=== PATIENT | male | born 1975 | race Caucasian/White ===

== ENCOUNTER → 2017-04-07 | Outpatient (CLI) | payer BC ==
[~2017-04-07] MED LIST: GADAVIST IV PRN
[2017-04-07 19:29] LABS: BASO % 0.1 %; BASO ABS # 0.02 K/uL (0-0.2); COMPLETE YES; EOS % 0.1 %; HEMATOCRIT 45.7 % (42-52); IG% 1.6 %; LYMPH % 11.1 %; LYMPH ABS # 2.06 K/uL (1.2-3.4); MEAN CELL VOLUME 90.9 fL (80-100); MEAN CORPUSCULAR HEMOGLOBIN 30.2 pg (25-34); MEAN CORPUSCULAR HGB CONC 33.3 g/dl (32-36); MEAN PLATELET VOLUME 9.7 fL (7.4-10.4); MONO % 3.4 %; NEUT % 83.7 %; PLATELET COUNT 343 K/uL (130-400); RED BLOOD COUNT 5.03 M/uL (4.7-6.1); WHITE BLOOD COUNT 18.52 K/uL (4.8-10.8)
--- NOTE | 2017-04-07 20:28 | DIAGNOSTIC IMAGING REPORT ---
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 COMPARISON STUDY: None. FINDINGS: There are no areas of restricted diffusion to suggest acute infarction. The midline structures are intact. The paranasal sinuses are clear. The mastoid air cells are clear. The ventricles and sulci are within normal limits for age. There is no mass, hematoma, midline shift. The major vascular flow-voids at the skull base are well maintained. Postcontrast sequences show no areas of abnormal enhancement. No abnormal enhancement or masses within the bilateral internal auditory canals. No evidence for inner ear dysplasia. The 7th and 8th cranial nerves are normal and course and caliber. IMPRESSION: No acute intracranial abnormality. Normal bilateral internal auditory canals. Electronically signed by: Lorenzo Ibarra M.D. 04/07/2017 8:27 PM Dictated Date/Time: 04/07/2017 8:21 PM
[2017-04-07 20:49] LABS: LYME DISEASE AB IGM NEG (NEG)
[2017-04-07 20:50] LABS: LYME DISEASE AB IGG NEG (NEG)
[2017-04-15 20:21] LABS: ANTI-68 kd Ag (HSP-70 Ab) NEGATIVE (NEGATIVE)
== END | disposition home or self-care (01) ==
LOC: C.MRI 18:46
PROVIDERS: ATTEND Physician Assistant
DX: H91.21 Sudden idiopathic hearing loss, right ear (principal)